=== PATIENT | male | born 1980 | race African-American/Black ===

== ENCOUNTER 2020-10-04 08:15 | Outpatient (REF) | payer OTHER, SELFPAY ==
[2020-10-04 11:59] LABS: Alanine Aminotransferase 13 U/L (0-40); Albumin Level 4.5 g/dL (3.5-5.0); Alkaline Phosphatase 77 U/L (39-117); Anion Gap 12 (12-20); Aspartate Amino Transferase 18 U/L (5-37); Bilirubin Total 0.5 mg/dL (0.0-1.0); Blood Urea Nitrogen 8 mg/dL (9-16); Calcium 9.3 mg/dL (8.4-10.2); Carbon Dioxide 28 mmol/L (22-29); Chloride 104 mmol/L (96-108); Cholesterol 210 mg/dL; Estimated Glomerular Filt Rate > 60; Glucose Fasting 94 mg/dL (60-99); HDL Cholesterol 44 mg/dL; LDL Cholesterol Calculated 146 mg/dl; Sodium 140 mmol/L (135-145); Total Protein 8.4 g/dL (6.5-8.0); Triglycerides 102 mg/dL
== END 2020-10-04 08:16 | disposition home or self-care (01) ==
LOC: HO.HMGCLDS 08:15
PROVIDERS: PCP Internal Medicine; Visit Provider Internal Medicine
DX: Z00.00 Encounter for general adult medical examination without abnormal findings (principal)
CPT/HCPCS: 36415; 80053; 80061

== ENCOUNTER 2022-12-19 09:39 | Outpatient (AMB) | payer OTHER, SELFPAY ==
--- NOTE | 2022-12-19 12:37 | AM.OFFWIN_ITS ---
Intake Vital Signs 12/19/22 12:44 Weight 221 lb 4 oz BP 138/80 Blood Pressure Location Rt brachial Position Sitting Pulse 66 Pulse Source Pulse Oximeter Temp 97.9 F Temp Source Temporal Artery Scan Pulse Oximetry (%) 100 Intake Visit Reasons: EP, back pain [phone] Patient Tobacco Use Status: Never used Tobacco Allergies No Known Allergies Allergy (Verified 12/19/22 12:39) Do you need a note to return to daycare/school/sports/work: Yes HPI EP, back pain [phone] HPI Details 42 year old patient presents today for nitial evaluation of his lower back pain. He reports injuring lower back multiple times over the last 5-6 years during his work in the [employer]. He reports several falls on ice while working, however he did not seek treatment at those times. He states that over the last year or so, his pain has been worsening. He describes a stiff, aching pain in b/l lower back. Pain is worse in mornings, and in cold weather months, particularly with forward flexion and extension. He reports that at times, pain and tingling sensation radiates down his posterior legs, stopping around the backs of his knees. He denies any weakness or numbness in legs. He denies any saddle anesthesia. He denies any prior evaluation or surgery to his lower back. He states the pain is not superficial, but rather a deeper pain. [facility] Medical History Hyperlipidemia Folliculitis Annual physical exam Social History Patient Tobacco Use Status: Never used Tobacco e-Cigarette/Vaping Use: Never Used Current occupational status: employed Current occupation: correctional offifer Review of Systems Const All systems reviewed & are unremarkable except as noted in HPI and below Physical Exam Vital Signs: Last Vital Signs Temp 97.9 F 12/19/22 12:44 Pulse 66 12/19/22 12:44 BP 138/80 12/19/22 12:44 Pulse Ox 100 12/19/22 12:44 Const General: cooperative, healthy appearing and no acute distress HEENT Head: Yes normal to inspection Resp Effort & Inspection: normal respiratory effort Auscultation: clear to auscultation bilaterally Cardio Jugular venous distension: no JVD Palpation: normal PMI Rate: regular rate Rhythm: regular rhythm Back/Spine/Pelvis Thoracic/Lumbar Spine: thoracic and lumbar spine normal to inspection, straight leg raise negative bilaterally and pain with thoraco-lumbar ROM (Positive facet loading bilateral L3, L4, L5) Skin General skin exam: no rashes or lesions noted Extrem General: Yes full ROM, Yes capillary refill normal and Yes no clubbing, cyanosis or edema Psych Appearance: grossly normal Mental Status: mental status grossly normal Speech and movement: Normal speech and movement present Assessment & Plan Assessment & Plan (1) Low back pain radiating to lower extremity: Code(s): M54.50 - Low back pain, unspecified; M79.606 - Pain in leg, unspecified Plan: Very pleasant 42-year-old gentleman presents with a history of lower back pain with occasional radiation down posterior legs. It does not present as a clear radiculopathy. I suspect his pain is more facet-mediated in nature. I obtained Xrays today of his lumbar spine which appear unremarkable. I have advised he utilize conservative measures at this time to treat any flare ups of lower back pain, including gentle stretching, heat application, NSAID use. He could potentially benefit from either courese of PT or referral to Pain Management if needed. He will d/w PCP. He agrees to this plan. It has been over a year since he has seen his PCP, and I advised he check in at the desk prior to leaving today to make a primary care visit with her for any ongoing needs. He agrees and states he will do so. If pain worsens or changes, or new symptoms develop, he should f/u with PCP or at [facility]. Orders: Orders XR lumbar spine 2-3V Today M54.50 - Low back pain, unspecified, M79.606 - Pain in leg, unspecified Coding Level of Care Code Est Pt Level 3 (13156) Diagnoses Low back pain radiating to lower extremity M54.50; M79.606
[2022-12-19 12:44] VITALS: BP 138/80; PULSE 66; TEMP 36.6; O2SAT 100
== END 2022-12-19 13:40 | disposition home or self-care (01) ==
PROVIDERS: PCP Internal Medicine; Visit Provider Nurse Practitioner Family
DX: M54.50 Low back pain, unspecified (principal); M79.606 Pain in leg, unspecified
CPT/HCPCS: 99213

== ENCOUNTER 2022-12-19 13:11 | Outpatient (REF) | payer OTHER, SELFPAY ==
--- NOTE | ~2022-12-19 | XR_ITS ---
EXAMINATION: XR LUMBOSACRAL SPINE CLINICAL INFORMATION: Low back pain COMPARISON: None available. TECHNIQUE: Three views of the lumbosacral spine. FINDINGS: The vertebral bodies and posterior elements are normal. The disc spaces are preserved and the vertebral alignment is normal. The paraspinal soft tissues are normal. XR/XR lumbar spine 2-3V IMPRESSION: Unremarkable examination.
== END 2022-12-19 13:12 | disposition home or self-care (01) ==
LOC: HO.HMGCX 13:11
PROVIDERS: Visit Provider Nurse Practitioner Family
DX: M54.50 Low back pain, unspecified (principal); M79.606 Pain in leg, unspecified
CPT/HCPCS: 72100

== ENCOUNTER 2022-12-25 11:37 | Outpatient (AMB) | payer OTHER, SELFPAY ==
[2022-12-25 11:41] VITALS: BP 134/76; PULSE 77; O2SAT 98; BMI 29.6
--- NOTE | 2022-12-25 11:41 | MHC.PC.OV ---
Vital Signs 12/25/22 11:41 Height 6 ft 1 in Weight 224 lb BMI 29.6 BP 134/76 Blood Pressure Location Lt brachial Position Sitting Pulse 77 Pulse Source Pulse Oximeter Pulse Oximetry (%) 98 Oxygen Delivery Method Room Air Intake Visit Reasons: Back pain Intake Note: Pt is here today for a sick visit. Pt c/o lower back pain Allergies No Known Allergies Allergy (Verified 12/25/22 11:52) Medication List - Last Reconciled 12/25/22 by Glory Sauer MD No Known Home Meds Tobacco use date assessed: 12/25/22 Dental Screening Dental Screen Date: 12/25/22 Did you have a dental visit in the last 12 months?: Yes Did you have a dental problem in the last 6 months where you did not have access to dental care?: No Was dental information given to patient?: Patient has dentist HPI Back pain HPI Details Pt presents c/o chronic for 2 years, LBP and stiffness on and off, worse when getting up in AM, better during the day. Patient denies pain radiating to lower extremities weakness or numbness in extremities. Pt he has been exercising at the gym, on a treadmill at least a half an hour with 4 times a week and lifting weights. Patient denies any pain when walking on a treadmill and lower back improves. Patient was seen in urgent care and had normal x-rays of lumbar spine. [facility] Medical History Hyperlipidemia Folliculitis Annual physical exam Social History Patient Tobacco Use Status: Never used Tobacco e-Cigarette/Vaping Use: Never Used Current occupational status: employed Current occupation: correctional offifer Cognitive needs: No Hearing needs: No Vision needs: No Questionnaire PHQ-9 Over the last 2 weeks, how often have you been bothered by any of the following problems? 1. Little interest or pleasure in doing things: not at all 2. Feeling down, depressed, or hopeless: not at all 3. Trouble falling or staying asleep, or sleeping too much: not at all 4. Feeling tired or having little energy: not at all 5. Poor appetite or overeating: not at all 6. Feeling bad about yourself - or that you are a failure or have let yourself or your family down: not at all 7. Trouble concentrating on things, such as reading the newspaper or watching television: not at all 8. Moving or speaking so slowly that other people could have noticed. Or the opposite - being so fidgety or restless that you have been moving around a lot more than usual: not at all 9. Thoughts that you would be better off or of hurting yourself in some way: not at all Total score: 0 Depression Screening Interpretation: Negative Depression Screening Done: Yes Source: Developed by Drs. Isael Acevedo, Catherine Beatty, Leoncio Larkin and colleagues, with an educational brandyn from [employer]. Thrive Questionnaire Date Thrive assessed: 12/25/22 I am a: Patient What is your living situation today?: I have a steady place to live Within the past 12 months, did the food you bought not last and you didn't have the money to get more?: Never true Within the past 12 months, did you worry whether your food would run out before you got money to buy more?: Never true Do you have trouble paying for medicines?: No Do you have trouble getting transportation to medical appointments?: No Do you have trouble paying your heating and electricity bill?: No Do you have trouble taking care of your child, family member or friend?: No Do you have trouble with day-to-day activities such as bathing, preparing meals, shopping, managing finances, etc.?: No Are you currently unemployed and looking for a job?: No Are you interested in more education?: No Please select the resources that you would like help with: None AUDIT C Alcohol Use Questionnaire (AUDIT-C) 1. How often do you have a drink containing alcohol?: Monthly or less 2. How many drinks containing alcohol do you have on a typical day when you are drinking?: 1 or 2 3. How often do you have six or more drinks on one occasion?: Never Total Score: 1 ELVIS-7 AMB Questionnaire ELVIS-7 Date ELVIS - 7 assessed: 12/25/22 Feeling nervous, anxious, or on edge: 0 = Not at all Not being able to stop or control worryin = Not at all Worrying too much about different things: 0 = Not at all Trouble relaxin = Not at all Being so restless that it is hard to sit still: 0 = Not at all Becoming easily annoyed or irritable: 0 = Not at all Feeling afraid as if something awful might happen: 0 = Not at all Total ELVIS-7 score (0-4 normal; 5-9 mild; 10-14 moderate; 15-21 severe): 0 Source: Developed by Drs. Isael Acevedo, Catherine Beatty, Leoncio Larkin and colleagues, with an educational brandyn from [employer]. Review of Systems Const All systems reviewed & are unremarkable except as noted in HPI and below Reports no additional complaints Eyes Reports no additional complaints ENT Reports no additional complaints Card Reports no additional complaints Resp Reports no additional complaints GI Reports no additional complaints Reports no additional complaints Musc Reports no additional complaints Physical exam (Primary Care) Vital Signs: Last Vital Signs Pulse 77 12/25/22 11:41 BP 134/76 12/25/22 11:41 Pulse Ox 98 12/25/22 11:41 Oxygen Delivery Method Room Air 12/25/22 11:41 BMI result Body Mass Index 29.6 Tobacco/Smoking Status: Tobacco use Status Tobacco use date assessed 12/25/22 12/25/22 11:56 Patient Tobacco Use Status Never used Tobacco 12/25/22 11:56 e-Cigarette/Vaping Use Never Used 12/25/22 11:41 PHQ-9: PHQ-9 Score PHQ-9: Total score 0 12/25/22 11:56 Depression Screening Interpretation: Negative Thrive Assessment: Date of Thrive Assessment Date Thrive assessed 12/25/22 12/25/22 11:56 Const General: no acute distress HENMT Head: Yes normal to inspection Face and sinus: Yes normal facial exam Resp Effort & Inspection: normal respiratory effort Auscultation: clear to auscultation bilaterally GI Inspection: Yes normal to inspection Palpation (GI): Soft to palpation Percussion: Yes normal to percussion Back/Spine/Pelvis Other: Full range of motion lumbar spine, paraspinal tenderness in lower lumbar region, straight leg rising 90 degrees bilaterally strength is 5/5 bilaterally Assessment and Plan Assessment & Plan (1) Lower back pain: Code(s): M54.50 - Low back pain, unspecified Plan: For chronic mechanical lower back pain patient will schedule an appointment physical therapy at [place]. (2) Annual physical exam: Code(s): Z00.00 - Encounter for general adult medical examination without abnormal findings Plan: Return for physical with fasting labs before Orders: Orders Complete Blood Count Auto Diff Today E78.5 - Hyperlipidemia, unspecified, M54.50 - Low back pain, unspecified, Z00.00 - Encounter for general adult medical examination without abnormal findings PT Evaluation and Treatment Today M54.50 - Low back pain, unspecified Comprehensive [place]. Panel Fast Today E78.5 - Hyperlipidemia, unspecified, M54.50 - Low back pain, unspecified, Z00.00 - Encounter for general adult medical examination without abnormal findings Lipid Panel Today E78.5 - Hyperlipidemia, unspecified, M54.50 - Low back pain, unspecified, Z00.00 - Encounter for general adult medical examination without abnormal findings PSA,Total (Free>4and<10) Today E78.5 - Hyperlipidemia, unspecified, M54.50 - Low back pain, unspecified, Z00.00 - Encounter for general adult medical examination without abnormal findings Coding Level of Care Code Est Pt Level 3 (00290) Diagnoses Lower back pain M54.50 Annual physical exam Z00.00
== END 2022-12-25 12:40 | disposition home or self-care (01) ==
PROVIDERS: PCP Internal Medicine; Visit Provider Internal Medicine
DX: M54.50 Low back pain, unspecified (principal); Z00.00 Encounter for general adult medical examination without abnormal findings
CPT/HCPCS: 99213

== ENCOUNTER 2023-02-18 09:00 | Outpatient (RCR) | payer OTHER, SELFPAY ==
--- NOTE | 2022-12-26 08:15 | MHC.PT.EP ---
[facility] [place] Office [place] Office [place] Office [address] Nichole Hernandez [address] [phone] F: [phone] F: [phone] F: [phone] F: [phone] Physical Therapy Plan of Care Date of Evaluation: 12/26/22 Date of Surgery: Diagnosis: This is a 42 yo male presenting to skilled PT with a script for LBP. Assessment: This is a 42 yo male presenting to skilled PT with a script for LBP. Pt presents c/o ongoing chronic LBP for some time now since at least 2018 but has been progressively getting worse over the last year or so. He reports multiple incidents of injury during his work in the [employer]now in [employer]) as well as several falls on ice at work without treatment following these incidents. His pain is described as stiffness as well as sharp at times as well. Pain is described as comes and goes with warm weather and constant with cold. Achiness ranges across the low back and his pain is worse in AM/better as the day goes on. Pain also increases with bending forward and interrupts his sleep at times. Occasionally he reports pain and tingling that also radiates down the posterior leg to the knees. Patient denies weakness or numbness in extremities, changes in b/b. Patient was seen in urgent care and had x-rays of lumbar spine which was unremarkable. Patient is also starting to work with the [employer] for symptom management as well. Assessment reveals pain that ranges from up to a 7/10 at the worst. Patient demos decreased lumbar, thoracic and hip ROM, strength of B hips, core and back, TTP at lumbar soft tissues (L more than R), joint hypomobility and tenderness throughout lumbar and thoracic spine, and impaired posture with forward head and rounded shoulders. Based on functional limitations, impaired QOL and pain tolerance patient is a good candidate for skilled PT 2x/wk for 4wks. Frequency and Duration: The patient will be seen 2x/wk for 4wks Short Term Goals: Pt will demonstrate improved postural awareness and understanding of core engagement with supine and standing tasks without cues throughout session to improve overall back safety in 2 weeks. Pt will demonstrate centralization of sx in 2 weeks. Pt will continue to reinforce precautions, sitting, standing and ADL modifications with proper body mechanics in 2 wks. Food Supervisor Goals: Pt will demonstrate improved outcome measure by 5 points in 4 weeks for improved functional mobility. Pt will demonstrate ability to bend and lift WNL min to no pain for household tasks in 4 wks. Pt will be I in HEP and compliant in 4wks Treatment Plan: Modalities to reduce pain, spasms and effusion. Manual therapy to restore motion and function. Therapeutic exercise to improve strength and flexibility. Neuromuscular re-education for posture and balance. Therapeutic activities to return to functional activities of daily living. Electronically signed by: Luz Maria Ivory, PT Please sign and return to therapist. Thank you for your referral.
--- NOTE | 2023-03-21 14:21 | MHC.PT.DC ---
[facility] [place] Office [place] Office [place] Office [address] [phone] F: [phone] F: [phone] F: [phone] F: [phone] Physical Therapy Discharge Report Diagnosis: This is a 42 yo male presenting to skilled PT with a script for LBP. Date of Surgery: Date of Evaluation: 12/26/22 Date of Discharge: 03/21/23 Treatments to Date: 5 Cancellations to Date: 0 No Shows to Date: 0 Discharge Status: Insurance Declined Tx Patient Elected to Stop Visit Non-compliance Discharge Summary: Patient came to 5 PT visits but had multiple cancellations. His end date was reached and patient did not return within appropriate time frame in order to continue PT. Patient should follow up with MD if pain continues at this time and continue HEP in the mean time. Electronically signed by: Luz Maria Ivory PT Please sign and return to therapist. Thank you for your referral.
== END 2023-03-21 14:21 | disposition home or self-care (01) ==
LOC: HO.PTCHIC 09:00
PROVIDERS: PCP Internal Medicine; Visit Provider Internal Medicine
DX: M54.50 Low back pain, unspecified (principal)
CPT/HCPCS: 97014; 97110; 97140; 97161

== ENCOUNTER 2023-05-30 09:33 | Outpatient (AMB) | payer OTHER, SELFPAY ==
[2023-05-30 09:36] VITALS: BP 126/80; PULSE 77; O2SAT 100; BMI 29.2
--- NOTE | 2023-05-30 09:36 | MHC.PC.OV ---
Vital Signs 05/30/23 09:36 Height 6 ft 1 in Weight 221 lb BMI 29.2 BP 126/80 Blood Pressure Location Rt brachial Position Sitting Pulse 77 Pulse Source Pulse Oximeter Pulse Oximetry (%) 100 Oxygen Delivery Method Room Air Intake Visit Reasons: F/u 05/27/23 Lab Results Intake Note: Pt is here today for a follow up visit on labs. Allergies No Known Allergies Allergy (Verified 05/30/23 09:38) Medication List - Last Reconciled 05/30/23 by Glory Sauer MD No Known Home Meds Tobacco use date assessed: 05/30/23 Dental Screening Dental Screen Date: 05/30/23 Did you have a dental visit in the last 12 months?: Yes Did you have a dental problem in the last 6 months where you did not have access to dental care?: No Was dental information given to patient?: Patient has dentist HPI F/u 05/27/23 Lab Results HPI Details Patient presents for follow-up from pre-employment physical. Patient had blood work which showed microcytic anemia with a hemoglobin of 11.2 and hematocrit of 36.4. Patient denies shortness of breath, chest pains palpitations hematochezia melena abdominal pain. He has been eating well-balanced diet and exercises in the gym 5 times a week. He does not recall any history of anemia and has not been taking any NSAIDs or aspirin recently. Location . [facility] Medical History Hyperlipidemia Folliculitis Annual physical exam Social History Patient Tobacco Use Status: Never used Tobacco e-Cigarette/Vaping Use: Never Used Current occupational status: employed Current occupation: correctional offifer Cognitive needs: No Hearing needs: No Vision needs: No Questionnaire PHQ-9 Over the last 2 weeks, how often have you been bothered by any of the following problems? 1. Little interest or pleasure in doing things: not at all 2. Feeling down, depressed, or hopeless: not at all 3. Trouble falling or staying asleep, or sleeping too much: not at all 4. Feeling tired or having little energy: not at all 5. Poor appetite or overeating: not at all 6. Feeling bad about yourself - or that you are a failure or have let yourself or your family down: not at all 7. Trouble concentrating on things, such as reading the newspaper or watching television: not at all 8. Moving or speaking so slowly that other people could have noticed. Or the opposite - being so fidgety or restless that you have been moving around a lot more than usual: not at all 9. Thoughts that you would be better off or of hurting yourself in some way: not at all Total score: 0 Depression Screening Interpretation: Negative Depression Screening Done: Yes Source: Developed by Drs. Isael Acevedo, Catherine Beatty, Leoncio Larkin and colleagues, with an educational brandyn from [employer]. Thrive Questionnaire Date Thrive assessed: 05/30/23 I am a: Patient What is your living situation today?: I have a steady place to live Within the past 12 months, did the food you bought not last and you didn't have the money to get more?: Never true Within the past 12 months, did you worry whether your food would run out before you got money to buy more?: Never true Do you have trouble paying for medicines?: No Do you have trouble getting transportation to medical appointments?: No Do you have trouble paying your heating and electricity bill?: No Do you have trouble taking care of your child, family member or friend?: No Do you have trouble with day-to-day activities such as bathing, preparing meals, shopping, managing finances, etc.?: No Are you currently unemployed and looking for a job?: No Are you interested in more education?: No Please select the resources that you would like help with: None Currently or been in a relationship where the following occur: no concerns reported THRIVE Score: 0 AUDIT C Alcohol Use Questionnaire (AUDIT-C) 1. How often do you have a drink containing alcohol?: Monthly or less 2. How many drinks containing alcohol do you have on a typical day when you are drinking?: 1 or 2 3. How often do you have six or more drinks on one occasion?: Never Total Score: 1 ELVIS-7 AMB Questionnaire ELVIS-7 Date ELVIS - 7 assessed: 05/30/23 Feeling nervous, anxious, or on edge: 0 = Not at all Not being able to stop or control worryin = Not at all Worrying too much about different things: 0 = Not at all Trouble relaxin = Not at all Being so restless that it is hard to sit still: 0 = Not at all Becoming easily annoyed or irritable: 0 = Not at all Feeling afraid as if something awful might happen: 0 = Not at all Total ELVIS-7 score (0-4 normal; 5-9 mild; 10-14 moderate; 15-21 severe): 0 Source: Developed by Drs. Isael Acevedo, Catherine Beatty, Leoncio Larkin and colleagues, with an educational brandyn from [employer]. Review of Systems Const All systems reviewed & are unremarkable except as noted in HPI and below Reports no additional complaints Eyes Reports no additional complaints ENT Reports no additional complaints Card Reports no additional complaints Resp Reports no additional complaints GI Reports no additional complaints Reports no additional complaints Physical exam (Primary Care) Vital Signs: Last Vital Signs Pulse 77 05/30/23 09:36 BP 126/80 05/30/23 09:36 Pulse Ox 100 05/30/23 09:36 Oxygen Delivery Method Room Air 05/30/23 09:36 BMI result Body Mass Index 29.2 Tobacco/Smoking Status: Tobacco use Status Tobacco use date assessed 05/30/23 05/30/23 09:41 Patient Tobacco Use Status Never used Tobacco 05/30/23 09:41 e-Cigarette/Vaping Use Never Used 05/30/23 09:41 PHQ-9: PHQ-9 Score PHQ-9: Total score 0 05/30/23 09:41 Depression Screening Interpretation: Negative Thrive Assessment: Date of Thrive Assessment Date Thrive assessed 05/30/23 05/30/23 09:41 Currently or been in a relationship where the following occur: no concerns reported Const General: no acute distress HENMT Head: Yes normal to inspection Ears: hearing grossly normal bilaterally Mouth: Normal oral and palatal mucosa present Throat: Yes posterior oropharynx normal Eyes General: appearance normal, both eyes and all related structures Neck Neck: Yes supple Resp Effort & Inspection: normal respiratory effort Auscultation: clear to auscultation bilaterally Cardio Rhythm: regular rhythm Heart sounds: S1 normal heart sound present and S2 normal heart sound present GI Inspection: Yes normal to inspection Palpation (GI): Soft to palpation Percussion: Yes normal to percussion Auscultation: normal bowel sounds Assessment and Plan Assessment & Plan (1) Anemia: Code(s): D64.9 - Anemia, unspecified Plan: For microcytic anemia obtain iron studies sickle cell screen serum immunofixation. Patient was given Hemoccult cards Orders: Orders IRON PROFILE Today D64.9 - Anemia, unspecified Vitamin B12 and Folate Today D64.9 - Anemia, unspecified Immunofixation Pnl, Serum Today D64.9 - Anemia, unspecified AMB Stool Cards / FIT Kit Given Today Z12.11 - Encounter for screening for malignant neoplasm of colon Complete Blood Count Auto Diff Today D64.9 - Anemia, unspecified Sickle Cell Scr Today D64.9 - Anemia, unspecified Coding Level of Care Code Est Pt Level 3 (00510) Diagnoses Anemia D64.9
== END 2023-05-30 10:06 | disposition home or self-care (01) ==
PROVIDERS: PCP Internal Medicine; Visit Provider Internal Medicine
DX: D64.9 Anemia, unspecified (principal)
CPT/HCPCS: 99213

== ENCOUNTER 2023-05-30 09:58 | Outpatient (REF) | payer OTHER, SELFPAY ==
[2023-05-30 13:16] LABS: MANUAL DIFF FLAG NO
[2023-05-30 13:29] LABS: Basophils Percent Auto 0.6 % (0-2); Eosinophils Absolute Auto 0.1 X10*3/uL (0.0-0.4); Eosinophils Percent Auto 2.5 % (0-4); Hematocrit 39.5 % (42.0-52.0); Hemoglobin 12.1 g/dl (14.0-18.0); Lymphocytes Absolute Auto 1.9 X10*3/uL (1.2-4.9); Lymphocytes Percent Auto 36.5 % (20-40); Mean Corpuscular HGB Conc 30.6 g/dl (31.0-36.0); Mean Corpuscular Hemoglobin 21.6 pg (27.0-33.0); Mean Corpuscular Volume 70.7 fL (80.0-98.0); Monocytes Absolute Auto 0.5 X10*3/uL (0.1-1.2); Monocytes Percent Auto 8.8 % (2-11); Neutrophils Absolute Auto 2.6 x10*3/uL (2.0-8.3); Neutrophils Percent Auto 51.6 % (45-73); Platelet Count 205 X10*3/uL (160-400); Red Blood Count 5.59 X10*6/uL (4.60-5.80); Red Cell Distribution Width 16.6 % (11.0-16.0); White Blood Count 5.1 X10*3/uL (4.8-10.8)
[2023-05-30 13:47] LABS: Iron 165 mcg/dL (45-160); Percent Iron Saturation 37 % (15-50); Total Iron Binding Capacity 451 mcg/dL (228-428); Unsaturated Iron Binding 286 ug/dL
[2023-05-30 14:15] LABS: Sickle Cell Scr NEGATIVE (NEGATIVE)
[2023-05-30 14:18] LABS: Folate 9.2 ng/mL (> or = 4.0); Vitamin B12 884 pg/mL (200-900)
[2023-06-03 17:04] LABS: IgA 115 mg/dL (47-310); IgG 2372 mg/dL (600-1640); IgM 84 mg/dL (50-300)
== END 2023-05-30 09:59 | disposition home or self-care (01) ==
LOC: HO.HMGCLDS 09:58
PROVIDERS: PCP Internal Medicine; Visit Provider Internal Medicine
DX: D64.9 Anemia, unspecified (principal)
CPT/HCPCS: 36415; 82607; 82746; 82784; 83540; 85025; 85660; 86334

== ENCOUNTER 2023-06-03 16:52 | Outpatient (REF) | payer OTHER, SELFPAY ==
[2023-06-03 17:01] LABS: MANUAL DIFF FLAG NO
[2023-06-03 18:02] LABS: Basophils Percent Auto 0.6 % (0-2); Eosinophils Absolute Auto 0.1 X10*3/uL (0.0-0.4); Eosinophils Percent Auto 0.9 % (0-4); Hematocrit 39.1 % (42.0-52.0); Hemoglobin 12.2 g/dl (14.0-18.0); Imm Gran Abs Auto 0.01 X10*3/uL (0.00-0.03); Imm Gran Pct Auto 0.2 % (0.0-0.4); Immature Retic Fraction 20.4 % (2.3-13.4); Lymphocytes Absolute Auto 1.3 X10*3/uL (1.2-4.9); Lymphocytes Percent Auto 23.5 % (20-40); Mean Corpuscular HGB Conc 31.2 g/dl (31.0-36.0); Mean Corpuscular Volume 70.6 fL (80.0-98.0); Mean Platelet Volume 11.1 fL (9.4-12.4); Monocytes Absolute Auto 0.4 X10*3/uL (0.1-1.2); Monocytes Percent Auto 8.1 % (2-11); Neutrophils Absolute Auto 3.5 x10*3/uL (2.0-8.3); Neutrophils Percent Auto 66.7 % (45-73); Platelet Count 210 X10*3/uL (160-400); Red Blood Count 5.54 X10*6/uL (4.60-5.80); Red Cell Distribution Width 17.3 % (11.0-16.0); Retic HGB Equivalent 29.2 pg (30.0-35.0); Reticulocyte Percent 1.3 % (0.5-1.8); Reticulocytes Absolute 0.074 X10*6/uL (0.026-0.095); White Blood Count 5.3 X10*3/uL (4.8-10.8)
[2023-06-03 18:10] LABS: Alanine Aminotransferase 18 U/L (0-40); Albumin Level 4.7 g/dL (3.5-5.0); Alkaline Phosphatase 81 U/L (39-117); Anion Gap 13 (12-20); Aspartate Amino Transferase 21 U/L (5-37); Bilirubin Total 0.4 mg/dL (0.0-1.0); Blood Urea Nitrogen 9 mg/dL (9-16); Calcium 9.7 mg/dL (8.4-10.2); Carbon Dioxide 27 mmol/L (22-29); Chloride 104 mmol/L (96-108); Cholesterol 218 mg/dL (<200); Estimated Glomerular Filt Rate > 60; Glucose Fasting 104 mg/dL (60-99); HDL Cholesterol 47 mg/dL (>40); LDL Cholesterol Calculated 157 mg/dL (<100); Lactate Dehydrogenase 197 U/L (118-273); Potassium 3.9 mmol/L (3.3-5.1); Sodium 140 mmol/L (135-145); Total Protein 9.2 g/dL (6.5-8.0); Triglycerides 72 mg/dL (<150)
[2023-06-03 18:27] LABS: PSA,Total (Free>4and<10) 1.39 ng/mL (0.00-4.00)
[2023-06-05 10:49] LABS: Haptoglobin 164 mg/dL (43-212)
[2023-06-06 07:49] LABS: Hematocrit 39.3 % (38.5-50.0); Hemoglobin 12.1 g/dL (13.2-17.1); MCH 21.8 pg (27.0-33.0); MCV 70.7 fL (80.0-100.0); RBC 5.56 Million/uL (4.20-5.80); RDW 18.2 % (11.0-15.0)
== END 2023-06-03 16:53 | disposition home or self-care (01) ==
LOC: HO.LAB 16:52
PROVIDERS: PCP Internal Medicine; Visit Provider Internal Medicine
DX: Z00.00 Encounter for general adult medical examination without abnormal findings (principal); Z12.5 Encounter for screening for malignant neoplasm of prostate; M54.50 Low back pain, unspecified; D64.9 Anemia, unspecified; E78.5 Hyperlipidemia, unspecified
CPT/HCPCS: 36415; 80053; 80061; 83010; 83020; 83615; 84153; 85014; 85018; 85025; 85041; 85045

== ENCOUNTER 2023-06-10 13:28 | Outpatient (AMB) | payer OTHER, SELFPAY ==
[2023-06-10 13:32] VITALS: BP 134/80; PULSE 73; O2SAT 100; BMI 29.2
--- NOTE | 2023-06-10 13:32 | MHC.PC.OV ---
Vital Signs 06/10/23 13:32 Height 6 ft 1 in Weight 221 lb BMI 29.2 BP 134/80 Blood Pressure Location Lt brachial Position Sitting Pulse 73 Pulse Source Pulse Oximeter Pulse Oximetry (%) 100 Oxygen Delivery Method Room Air Intake Visit Reasons: review labs Intake Note: Pt is here today for a follow up visit on labs. Allergies No Known Allergies Allergy (Verified 06/10/23 13:36) Medication List - Last Reconciled 06/10/23 by Glory Sauer MD No Known Home Meds Tobacco use date assessed: 05/30/23 Dental Screening Dental Screen Date: 05/30/23 HPI review labs HPI Details Patient presents for the follow-up of blood work results the workup for microcytic anemia was negative for sickle cell and iron deficiency anemia. patient is being referred to tram inspector because of elevated IgG level, no monoclonal protein. He has been working out regularly and denies shortness or breath chest pain fatigue unless or weakness PFSH Medical History (Updated 06/06/23 @ 12:33 by Glory Sauer MD) Hyperlipidemia Folliculitis Annual physical exam Surgical History (Updated 06/10/23 @ 13:37 by Susan De La Garza [facility]) No pertinent past surgical history Social History Patient Tobacco Use Status: Never used Tobacco e-Cigarette/Vaping Use: Never Used Current occupational status: employed Current occupation: correctional offifer Cognitive needs: No Hearing needs: No Vision needs: No Questionnaire Thrive Questionnaire Date Thrive assessed: 05/30/23 ELVIS-7 AMB Questionnaire ELVIS-7 Date ELVIS - 7 assessed: 05/30/23 Source: Developed by Drs. Isael Acevedo, Catherine Beatty, Leoncio Larkin and colleagues, with an educational brandyn from [employer]. Review of Systems Const All systems reviewed & are unremarkable except as noted in HPI and below Eyes Reports no additional complaints ENT Reports no additional complaints Card Reports no additional complaints Resp Reports no additional complaints GI Reports no additional complaints Reports no additional complaints Physical exam (Primary Care) Vital Signs: Last Vital Signs Pulse 73 06/10/23 13:32 BP 134/80 06/10/23 13:32 Pulse Ox 100 06/10/23 13:32 Oxygen Delivery Method Room Air 06/10/23 13:32 BMI result Body Mass Index 29.2 Tobacco/Smoking Status: Tobacco use Status Tobacco use date assessed 05/30/23 06/10/23 13:38 Patient Tobacco Use Status Never used Tobacco 06/10/23 13:38 e-Cigarette/Vaping Use Never Used 06/10/23 13:38 Thrive Assessment: Date of Thrive Assessment Date Thrive assessed 05/30/23 06/10/23 13:38 Const General: no acute distress HENMT Head: Yes normal to inspection Face and sinus: Yes normal facial exam Neck Neck: Yes no lymphadenopathy and Yes supple Resp Effort & Inspection: normal respiratory effort Auscultation: clear to auscultation bilaterally Cardio Rhythm: regular rhythm Heart sounds: S1 normal heart sound present and S2 normal heart sound present GI Inspection: Yes normal to inspection Palpation (GI): Soft to palpation Percussion: Yes normal to percussion Assessment and Plan Assessment & Plan (1) Hyperlipidemia: Code(s): E78.5 - Hyperlipidemia, unspecified Plan: Low-cholesterol diet increase physical activity discussed with the patient. He will have lipid profile rechecked in 6 months (2) Anemia: Comment: Microcytic anemia with normal iron studies, negative sickle screen, normal hemoglobin electrophoresis, elevated IgG with negative monoclonal protein Code(s): D64.9 - Anemia, unspecified Plan: Referred to Hematology patient is medically cleared to enter [facility] Orders: Orders Lipid Panel 6 Months E78.5 - Hyperlipidemia, unspecified Coding Level of Care Code Est Pt Level 3 (40861) Diagnoses Hyperlipidemia E78.5 Anemia D64.9
== END 2023-06-10 15:35 | disposition home or self-care (01) ==
LOC: HO.HMGC 13:28
PROVIDERS: PCP Internal Medicine; Visit Provider Internal Medicine
DX: E78.5 Hyperlipidemia, unspecified (principal); D64.9 Anemia, unspecified
CPT/HCPCS: 99213

== ENCOUNTER → 2023-07-02 12:57 | Outpatient (BNV) | payer BC, OTHER, SELFPAY | PROVIDERS: PCP Internal Medicine; Referring Provider Internal Medicine; Visit Provider Internal Medicine Medical Oncology | DX: D64.9 Anemia, unspecified (principal) | CPT/HCPCS: 99204; 99213 ==

== ENCOUNTER 2024-10-16 10:12 | Outpatient (AMB) | payer BC, SELFPAY ==
--- OUTSIDE RECORDS SUMMARY | 2024-10-16 10:21 | XMS_ITS | Continuity of Care Document ---
Author Name [facility] Organization [facility] Care Team Providers Care Customer Solutions Supervisor Name Role Phone [facility] Unavailable Unavailable Immunizations Combined list of available immunizations from the Department of Defense and Veterans Affairs facilities. Immunization Series Date Given Administered By Site Reaction Lot Number CVX Code Drug [employer] Status Comments Source Influenza, inj, MDCK, quadrivalent- pf 2020 [id number] Seqirus complet ed Influenza , inj, MDCK, quadrival ent-pf 11/11/20 Given Ambulat ory Pharmac y COVID Vaccine Moderna 2020 [id number] Unknown complet ed COVID Vaccine Moderna 03/31/20 Given Ambulat ory Pharmac y COVID Vaccine Moderna 2019 [id number] Unknown complet ed COVID Vaccine Moderna 02/14/20 Given Ambulat ory Pharmac y influenza, injectable, quadrivalent- pf 2018 [id number] 150 Seqirus complet ed influenza , injectabl e, quadrival ent-pf 12/06/18 Given Ambulat ory Pharmac y influenza, injectable, quadrivalent- pf 2017 [id number] 150 Seqirus complet ed influenza , injectabl e, quadrival ent-pf 12/15/17 Given Ambulat ory Pharmac y hepatitis B adult vaccine 2017 [id number] GlaxoSmithKli ne complet ed hepatitis B adult vaccine 04/12/17 Given Ambulat ory Pharmac y influenza, injectable, quadrivalent- pf 2017 [id number] 150 Seqirus complet ed influenza , injectabl e, quadrival ent-pf 04/12/17 Given Ambulat ory Pharmac y hepatitis B adult vaccine 2016 [id number] 43 GlaxoSmithKli ne complet ed hepatitis B adult vaccine 11/02/16 Given Ambulat ory Pharmac y adenovirus vaccine, live 2016 [id number] 143 Teva Pharmaceutica ls complet ed adenoviru s vaccine, live 08/30/16 Given Ambulat ory Pharmac y tetanus, diphtheria, acellular pertu is 2016 [id number] 115 GlaxoSmithKli ne complet ed tetanus, diphtheri a, acellular pertussis 08/30/16 Given Ambulat ory Pharmac y meningococcal A,C,Y,W-135 (MCV4P) 2016 [id number] 114 sanofi pasteur complet ed meningoco ccal A,C,Y,W-1 35 (MCV4P) 08/30/16 Given Ambulat ory Pharmac y hepatitis B adult vaccine 2016 [id number] 43 GlaxoSmithKli ne complet ed hepatitis B adult vaccine 08/30/16 Given Ambulat ory Pharmac y poliovirus vaccine, inactivated 2016 [id number] 10 sanofi pasteur complet ed polioviru s vaccine, inactivat ed 08/30/16 Given Ambulat ory Pharmac y measles, mumps and rubella virus vaccine 1 2016 UNK 03 Unknown (UNK) Not Given measles, mumps and rubella virus vaccine DoD poliovirus vaccine, inactivated 1 2016 [id number] 10 Sanofi Pasteur (PMC) complet ed polioviru s vaccine, inactivat ed DoD varicella virus vaccine 1 2016 UNK 21 Unknown (UNK) Not Given varicella virus vaccine DoD hepatitis B vaccine, adult dosage 1 2016 [id number] 43 Smithine (B) complet ed hepatitis B vaccine, adult dosage DoD hepatitis A vaccine, adult dosage 1 2016 [id number] 52 Unknown (UNK) Not Given hepatitis A vaccine, adult dosage DoD meningococcal polysaccharid e (groups A, C, Y and W-135) diphtheria toxoid conjugate vaccine (MCV4P) 1 2016 [id number] 114 Sanofi Pasteur (PMC) complet ed meningoco ccal polysacch aride (groups A, C, Y and W-135) diphtheri a toxoid conjugate vaccine (MCV4P) DoD tetanus toxoid, reduced diphtheria toxoid, and acellular pertu is vaccine, adsorbed 1 2016 [id number] 115 SmithKline (SKB) complet ed tetanus toxoid, reduced diphtheri a toxoid, and acellular pertussis vaccine, adsorbed DoD Adenovirus, type 4 and type 7, live, oral 1 2016 [id number] 143 [employer] [facility] (BRR) complet ed Adenoviru s, type 4 and type 7, live, oral DoD tuberculin purified protein derivative 2016 [id number] 96 sanofi pasteur complet ed tuberculi n purified protein derivativ e 08/28/16 Given Ambulat ory Pharmac y influenza, seasonal, injectable-pf 2015 [id number] 140 Seqirus complet ed influenza , seasonal, injectabl e-pf 11/12/15 Given Ambulat ory Pharmac y Influenza, seasonal, injectable, preservative free 1 2015 [id number] 140 Seqirus (SEQ) comple t ed Influenza , seasonal, injectabl e, preservat inez free [facility] Vital Signs Combined list of inpatient and outpatient Vital Signs from Department of Defense and Veterans Affairs, ranging from 12 months to all on record, depending upon the facility. Vital Sign Value Date Comments Source Systolic Blood Pressure 149 mm[Hg] 10/15/2022 13:45:[address] [place] [address] Diastolic Blood Pressure 92 mm[Hg] 10/15/2022 13:45:[address] [place] [address] Vital Signs Comments 10/15/2022 13:45:[address] [place] [address] Systolic Blood Pressure 157 mm[Hg] 10/15/2022 11:48:[address] [place] [address] Diastolic Blood Pressure 93 mm[Hg] 10/15/2022 11:48:[address] [place] [address] Peripheral Pulse Rate 69 bpm 10/15/2022 11:48:[address] [place] [address] Systolic Blood Pressure 140 mm[Hg] 10/15/2022 14:14:[address] [place] [address] Diastolic Blood Pressure 80 mm[Hg] 10/15/2022 14:14:[address] [place] [address] Vital Signs Comments 10/15/2022 14:14:[address] [place] [address] Encounters Combined list of: 1) Encounters from Department of Veterans Affairs facilities going backup to the last 18 months, not all VA inpatient encounters are included; 2) Encounters from the Department of Defense facilities going backup to 280 months. Location Location Details Encounter Type Encounter Number Reason For Visit Attending Provider ADM Date DC Date Status Disposition [facility] [place] [facility] [place] [id number] Notes Entered by: CORY SHAIKH 28 Aug 2016 0702 ------- ------- ------- ------- -- Optomet ry JAMIE Rodríguez 08/28 [facility] [place] Opt[place]) [facility] [place] Initial Entry) OUTPATIENT [id number] Notes Entered by: ZBIGNIEW QUIÑONEZ 28 Aug 2016 0732 ------- ------- ------- ------- -- [id number] B2 DAY 1 MARLON RUBIO 08/28 Released w/o Limitations [facility] [place] Initial Entry) [facility] [place] Hearing Conservat [place] Exam) OUTPATIENT [id number] ADELINA FORMAN 08/29 Released w/o Limitations [facility] [place] Hearing Conserv ation Exam) [facility] [place] Initial [place] OUTPATIENT [id number] Notes Entered by: WIL DOMINGUEZ 30 Aug 2016 0459 ------- ------- ------- ------- -- [id number] B2 DAY 3 GALEN CARRILLO 08/30 Released w/o Limitations [facility] [place]) [facility] [place] Initial [place] OUTPATIENT [id number] Notes Entered by: KASSANDRA JANE 02 Nov 2016 0801 ------- ------- ------- ------- -- D CO 3-10 SPEEDY HUGGINS 11/02 Released w/o Limitations [facility] [place]) Procedures Combined list of: 1) Procedures from Department of Veterans Affairs facilities going back up to thelast 18 months, not all VA non-surgical procedures are included; 2) All procedures from the Department of Defense facilities. Procedure Procedure Type Code Date Perfomer Comments Sourc e No data available for this section Ambulato ry Pharmacy HEPATITIS B VACCINE (HEPB), ADULT DOSAGE, 3 DOSE SCHEDULE, FOR INTRAMUSCULAR USE 11/03/19 17 [facility] ADENOVIRUS VACCINE, TYPE 7, LIVE, FOR ORAL USE 08/31/19 17 [facility] PURE TONE AUDIOMETRY (THRESHOLD); AIR ONLY 08/30/19 17 [facility] COLLECTION OF VENOUS BLOOD BY VENIPUNCTURE 08/29/19 17 [facility] FITTING OF SPECTACLES, EXCEPT FOR APHAKIA; MONOFOCAL 08/29/19 17 [facility] Immunization Administration One Vaccine Immunization Administration One Vaccine 47326 11/03/19 17 SPEEDY JOSUE [facility] Vaccines Adenovirus Type 7 Live, For Oral Use Vaccines Adenovirus Type 7 Live, For Oral Use 98309 08/31/19 17 GALEN CARRILLO [facility] Vaccines Viral Polio, Inactivated (Salk) Vaccines Viral Polio, Inactivated (Salk) 02805 08/31/19 17 GALEN CARRILLO [facility] Vaccines Adenovirus Type 4 Live, For Oral Use Vaccines Adenovirus Type 4 Live, For Oral Use 53277 08/31/19 17 GALEN CARRILLO [facility] Tdap Vaccine Tdap Vaccine 23595 08/31/19 17 GALEN CARRILLO [facility] Immunization Administration One Vaccine Immunization Administration One Vaccine 00961 08/31/19 17 GALEN CARRILLO Immunization Administration Each Additional Vaccine Immunization Administration Each Additional Vaccine 07792 08/31/19 17 GALEN CARRILLO [facility] Meningococcal Polysacch Diphtheria Toxoid Conjugate Vaccine 08/31/19 17 GALEN CARRILLO [facility] Venipuncture Venipuncture 85688 08/30/19 17 MARLON RUBIO [facility] Threshold Audiogram (Pure Tone) Threshold Audiogram (Pure Tone) 25952 08/30/19 17 THINNER, ADELINA M [facility] Fitting Monofocals (Not For Aphakia) [facility] Fitting Monofocals (Not For Aphakia) 78093 08/29/19 17 JAMIE CRANDALL Determination Of Refractive State Determination Of Refractive State 48068 08/29/19 17 JAMIE CRANDALL Screening Test Of Visual Acuity, Quantitative, Bilateral Screening Test Of Visual Acuity, Quantitative, Bilateral 57355 08/29/19 17 JAMIE CRANDALL [facility] Social History Combined list of available smoking, tobacco, and other social history from Department of Defense and Veterans Affairs facilities. Social History Type Response Date Comment Sour e Sexual Orientation Ambula tory Pharmacy Gender identity Ambulator y Pharmacy Sex Representation Male (finding) Un known Organization This section is an empty soc ial history section. DoD Assessment and Plan Combined list of future care activities from Department of Defense and Veterans Affairs facilities (e.g., assessment and plan notes, appointments, orders, and referrals). Additional future care activities may be listed in the Plan of Care section. Result Assessment and Plan Date Source Assessment and Plan Extracted from:Title : Education Note Author: JACKIE GIBSON Date: 10/15/22 10/16/[address] [place] [address] Functional Status Combined list of recent functional and cognitive assessments recorded at Department of Defense and Veterans Affairs (VA).VA Functional [place] Measurement (FIM) Scale: 1 = Total Assistance (Subject = 0% +), 2 = Maximal Assistance (Subject = 25% +), 3 = Moderate Assistance (Subject = 50% +), 4 = Minimal Assistance (Subject = 75% +), 5 = Supervision, 6 = Modified [place] (Device), 7 = Complete [place] (Timely, Safely). Assessment Date/Time Source Assessment Type Assessment Skill Assessment Score Assessment Details No data available for this section
[2024-10-16 10:42] VITALS: BP 132/90; PULSE 68; TEMP 36.9; O2SAT 99
--- NOTE | 2024-10-16 10:42 | AM.OFFWIN_ITS ---
Intake Vital Signs 10/16/24 10:42 Height 6 ft Weight 221 lb BMI 30.0 BP 132/90 H Blood Pressure Location Lt brachial Position Sitting Pulse 68 Pulse Source Pulse Oximeter Temp 98.4 F Temp Source Oral Pulse Oximetry (%) 99 Oxygen Delivery Method Room Air Intake Visit Reasons: EP had dental procedure, too much anestesia? Patient Tobacco Use Status: Never used Tobacco Allergies No Known Allergies Allergy (Verified 10/16/24 10:48) Do you need a note to return to daycare/school/sports/work: No HPI HPI Comments History of Present Illness Details History of Present Illness - The patient is a 44-year-old male pres enting with concerns following excessive anesthesia administration during a dental procedure. - The incident occurred a week ago at [facility], where an unlicensed individual administered four times the normal dose of anesthesia, presumably novocaine. - The patient experienced prolonged numb ness lasting almost two days, significantly longer than the expected two hours. - Current symptoms include sharp throat pain, sneezing, and occasional random slurred speech. - He also has pain in his neck/right janey e of face in the mornings which resolves on it's own. - The patient reports no auditory change s, dizziness, or seizures. Physical Exam General: Cooperative, healthy appearing, comfortable, no acute distress and well developed Orientation: Patient oriented x3 Limitations: No limitations Head: Normal to inspection Ears: Hearing grossly normal bilaterally Nose: Normal External nose present Face and sinus: Normal facial exam, oral mucosa normal, good dentition, posterior oropharynx normal and patent Eyes: Appearance normal, both eyes and all related structures Neck: Normal visual inspection and Yes full ROM Respiratory: Normal respiratory effort and able to speak in complete sentences Skin: No rashes or lesions noted Neuro: Patient oriented x3, normal speech, see below for more Extremities: Normal to inspection, moving all extremities normally [facility] Medical History (Updated 10/16/24 @ 11:07 by Mercedes Adams PA-C) Hyperlipidemia Folliculitis Annual physical exam Surgical History No pertinent past surgical history Social History Household Members: Children Patient Tobacco Use Status: Never used Tobacco e-Cigarette/Vaping Use: Never Used service: Yes Current occupational status: employed Current occupation: correctional offifer Cognitive needs: No Hearing needs: No Vision needs: No Review of Systems Const All systems reviewed & are unremarkable except as noted in HPI and below ENT Reports Normal hearing present Neuro Reports Normal hearing present Physical Exam Vital Signs: Last Vital Signs Temp 98.4 F 10/16/24 10:42 Pulse 68 10/16/24 10:42 BP 132/90 H 10/16/24 10:42 Pulse Ox 99 10/16/24 10:42 Oxygen Delivery Method Room Air 10/16/24 10:42 BMI result Body Mass Index 30.0 Const Orientation/consciousness: patient oriented x3 Neuro General: patient oriented x3, gait normal and moves all extremities Cranial nerves: Yes Facial sensation intact/muscles of mastication intact, Yes Nystagmus not present, Yes Midline tongue present, Yes Symmetric palate elevation present, Yes Normal hearing present and Yes Ability to bilaterally rotate head present Cognition (Neuro): normal cognition Gait exam (Neuro): Normal gait present Motor exam (neuro): no tremor noted Assessment & Plan Assessment & Plan (1) Pain of cheek: Code(s): R51.9 - Headache, unspecified Plan: - VSS, pt well appearing and PE unremarkable. - Pharmacokinetics of novocaine should be worn off as we are one week out from the administration. Patient appears well and nerves in face appear to be working normally as far as strength and sensation. Reviewed toxic effects of overdose of novocaine with the patient and he denies current symptoms beyond pain in his neck/right side of face in the mornings which resolves on it's own, occasional slurred speech which is normal at our visit and sneezing which could be seasonal allergies. - The patient is advised to consult with a grain receiver to evaluate potential long-term effects of novocaine toxicity. - Monitor for any persistent or worsening symptoms and seek immediate medical attention if necessary. Patient was informed and verbally consented to the use of an ambient scribe for clinic note documentation during this visit. (2) Accidental medication overdose: Code(s): T50.901A - Poisoning by unspecified drugs, medicaments and biological substances, accidental (unintentional), initial encounter Plan: as above Coding Level of Care Code Est Pt Level 3 (37010) Diagnoses Pain of cheek R51.9 Accidental medication overdose T50.901A
== END 2024-10-16 11:18 | disposition home or self-care (01) ==
PROVIDERS: PCP Internal Medicine; Visit Provider Physician Assistant
DX: R51.9 Headache, unspecified (principal); T50.901A Poisoning by unspecified drugs, medicaments and biological substances, accidental (unintentional), initial encounter